=== PATIENT | female | born 1980 | race Caucasian/White ===

== ENCOUNTER 2023-10-02 17:36 | Emergency (ER) | payer OTHER, SELFPAY ==
[2023-10-02 17:41] VITALS: BP 115/83
[2023-10-02] MEDS: TORADOL 60 MG IM (18:46)
--- NOTE | 2023-10-02 19:20 | ED.GENMED ---
History of Present Illness
General
Chief Complaint: Fall
Source: patient and spouse
Exam Limitations: none
Time Seen by Provider: 10/02/23 18:18
Travel History
Have you had any contact with someone who has COVID-19?: No
Do you have any symptoms of coronavirus? Fever > 100 degrees, chills, cough, shortness of breath, sore throat, loss of taste or smell, muscle aches, or headache?: No
History of Present Illness
History of Present Illness:
42-year-old female presents with pain in the right chest wall. Patient states that she was riding a horse when it rubbed her against the [place] fence and then bucked and threw her off. Her right chest wall hit the top rail of the fence. She
states that hurts to move or breathe and hurts just under her right breast. No shortness of breath. No abdominal pain. No vomiting. No head injury. No neck pain
Past History
Past History
ED Past Medical History: Other (Elevated heart rate)
ED Past Surgical History: Gynecological and Orthopedic
Social History
Tobacco: Non-smoker
Alcohol: Occasional
Drug: None
Personal:
Living: with family
Employment: Employed
Phy Exam
Physical Exam
Physical Exam:
CONSTITUTIONAL Patient alert and oriented to person, place and time. Well-appearing. Vital signs reviewed.
HEAD atraumatic, normocephalic.
EYES eyelids normal to inspection, Pupils equally round and reactive to light, Extraocular muscles intact, Conjunctiva normal, Sclera normal.
NECK normal range of motion, Trachea midline, no jugular venous distention.
RESPIRATORY CHEST No respiratory distress noted, Chest expansion equal, Bilateral breath sounds clear. Moderate right chest wall tenderness around the level of ribs 4-5 and intercostal spaces
CARDIOVASCULAR regular rate and rhythm, Heart sounds normal.
ABDOMEN abdomen nontender, Bowel sounds normal. No distention.
BACK normal inspection, no obvious deformities
UPPER EXTREMITY range of motion normal, Motor strength normal, no cyanosis, no edema. Area of ecchymosis noted on the inside of the right upper arm
LOWER EXTREMITY range of motion normal, Motor strength normal, no cyanosis, no edema.
NEURO Speech normal, No focal motor deficits, John coma scale 15, Memory normal, Cranial Nerves intact to screening exam.
SKIN skin warm, dry, and normal in color.
PSYCHIATRIC patient oriented to person place and time, Normal affect.
Course
Orders/Labs/Results
Orders:
Orders
10/02/23 17:44
Chest [CR Chest - 2 Views ] Urgent
Comment:
Reason For Exam: fall on fence
10/02/23 18:30
Ketorolac [Toradol] 60 mg IM NOW STA
Vital Signs
Initial and Last Documented VS:
Initial Vital Signs
Temp Pulse Resp BP Pulse Ox
98.3 F 90 16 115/83 97
10/02/23 17:41 10/02/23 17:41 10/02/23 17:41 10/02/23 17:41 10/02/23 17:41
Last Documented Vital Signs
Temp Pulse Resp BP Pulse Ox
98.3 F 90 16 115/83 97
10/02/23 17:41 10/02/23 17:41 10/02/23 17:41 10/02/23 17:41 10/02/23 17:41
MDM/Problems Addressed
MDM/Problems Addressed:
Chest wall injury
*Radiology
Radiology exam reviewed: all reviewed NAD by ED Provider
*Pulse Oximetry
Patient hypoxic: no
*Critical Care Note
Total Time (30-74mins, 75-104mins- exclusive of procedures): Not Applicable
Data Reviewed
Source: patient and significant other
Further Testing Considered But Not Given:
Consider chest CT but chest x-ray negative and lungs clear and equal breath sounds bilaterally
Patient Management
Escalation/DeEscalation of care consider admission/obs:
Status Farheen, pain control, outpatient follow-up
ED Attending Note
-
Portions of this chart may have been created with voice recognition software.� Occasional wrong word or��sound alike� substitutions may have occurred due to the inherent limitations of voice recognition software.
Discharge Plan
Departure
Patient Disposition: Home (Routine Discharge)
Date of Disposition: 10/02/23
Time of Disposition: 19:21
Patient with high blood pressure during this ER visit?: No
Discharge Problem:
Chest wall injury
Instructions: Blunt Chest Trauma (DC)
Prescriptions:
New
hydrocodone-acetaminophen 5-325 mg tablet
1 tab PO Q4H PRN (Reason: pain) Qty: 12 0RF
Referrals:
Mary Zarco MD [Family Provider] -
Activity Restrictions/Additional Instructions:
Please use incentive spirometer 10 times per hour while awake. Return for shortness of breath, worsening pain, abdominal pain or any other concerns.
Interventions
Interventions:
*Risk Screen - Suicide Last Done: 10/02/23 19:38
*General Assessment Last Done: 10/02/23 17:41
*Neglect/Abuse Screening Last Done: 10/02/23 19:38
ED- Fall Risk Assessment Last Done: 10/02/23 19:38
*ED COVID-19 Vaccine History Last Done: 10/02/23 19:38
*Nursing Disposition Last Done: 10/02/23 19:38
ED-Musculoskeletal Assessment Last Done: 10/02/23 18:55
ED- Neurological Assessment Last Done: 10/02/23 18:55
ED-Skin Assessment Last Done: 10/02/23 18:55
Discharge Date and Time
Discharge Date/Time: 10/02/23 19:40
Print Language: NEPALI
== END 2023-10-02 19:40 | disposition home or self-care (01) ==
LOC: EMR 17:36
PROVIDERS: EMERGENCY PHYSICIAN Emergency Medicine; FAMILY PHYSICIAN Family Medicine
DX: S29.9XXA Unspecified injury of thorax, initial encounter (principal); V80.010A Animal-rider injured by fall from or being thrown from horse in noncollision accident, initial encounter; Y93.52 Activity, horseback riding
CPT/HCPCS: 99284; 96372; 71046

== ENCOUNTER 2023-10-15 10:55 | Emergency (ER) | payer OTHER, SELFPAY ==
[2023-10-15 11:00] VITALS: BP 126/85
[2023-10-15 12:22] VITALS: BMI 31.0
--- NOTE | 2023-10-15 12:24 | ED.GENMED ---
History of Present Illness
General
Chief Complaint: Breathing Problem
Source: patient
Exam Limitations: none
Time Seen by Provider: 10/15/23 11:46
Nursing documentation reviewed up to this point in time: agreed with
Travel History
Have you had any contact with someone who has COVID-19?: No
Do you have any symptoms of coronavirus? Fever > 100 degrees, chills, cough, shortness of breath, sore throat, loss of taste or smell, muscle aches, or headache?: No
History of Present Illness
History of Present Illness:
pt s a 42 y/o F with h/o PACs on diltiazem
here with right sided rib pain
was thrown off her horse 10/01 and pinned against something on right ribs
came in and had CXR no PTX, effusion
suspected to have rib fx
vicodin and I.S.
was doing better until 4 days ago when she opened a window and suddenly felt severe pain and now with any movement, br eathing, palpation it is very painful
took motrin this am
she thinks she can feel crepitus with palpatin of her right lwer ribs under her breast
Past History
Past History
ED Past Medical History: Other (Elevated heart rate)
ED Past Surgical History: Gynecological and Orthopedic
Social History
Tobacco: Non-smoker
Alcohol: Occasional
Drug: None
Personal:
Living: with family
Employment: Employed
Review of Systems
Review of Systems
Allergies reviewed?: Yes
All Other Systems: Not applicable
Phy Exam
Physical Exam
Physical Exam:
GENERAL: Alert , uncomfortable
EYE: pupils equal and reactive
NECK: Supple
ENT: o/p clr, mmm.
CARDIAC: Regular rate and rhythm .
LUNGS: diminished, splinting, alfredo dto appreciate sounds due to not taking deep breaths
no tachypnea
chest wall: right llower anterior and lateral rb tendrness
ABDOMEN: Soft, without focal tenderness, no r/g, no cvat, normal bowel sounds
NEUROLOGICAL: Alert and oriented, no focal neuro deficits
SKIN: Warm and dry, skin intact.
MUSCULOSKELETAL: No edema, well perfused. neg alen's sign
PSYCH: Normal and appropriate interaction.
Course
Orders/Labs/Results
Orders:
Orders
10/15/23 12:12
Electrocardiogram (*1) Urgent
Reason for Study: Chest Pain
CT Chest W/o Iv Contrast Urgent
Comment: cxr neg initially; now severe pain with breathing
Reason For Exam: rght rib pain, fell off horse 2 weeks ago
EKG- Treatment ONCE
10/15/23 12:17
HYDROmorphone [Dilaudid] 0.5 mg IV NOW STA
Test Result ONCE
10/15/23 12:18
Ondansetron Injectable [Zofran] 4 mg IV NOW STA
10/15/23 12:31
Complete Blood Count/With Diff Urgent
Comprehensive Metabolic Panel Urgent
HCG, Serum Qualitative Screen Urgent
10/15/23 14:38
Ketorolac [Toradol] 30 mg IV NOW STA
Abnormal Lab Results
10/15/23
12:31
Hct 36.2 L %
(37.0-47.0)
10/15/23 12:31
10/15/23 12:31
Vital Signs
Initial and Last Documented VS:
Initial Vital Signs
Temp Pulse Resp BP Pulse Ox
98 F 91 16 126/85 98
10/15/23 11:00 10/15/23 11:00 10/15/23 11:00 10/15/23 11:00 10/15/23 11:00
Last Documented Vital Signs
Temp Pulse Resp BP Pulse Ox
98 F 87 16 109/86 97
10/15/23 11:00 10/15/23 15:00 10/15/23 15:00 10/15/23 15:00 10/15/23 15:00
MDM/Problems Addressed
Differential Diagnosis Includes:
rib fx, ptx
MDM/Problems Addressed:
42 y/o F thrown off a horse 2 weeks ago
cxr did not show obvious rib fx
d/c home with pain meds, I.S.
had felt better an hadn't needed vicodin in a while and then got worse pain after lifting a window and has pain thta is much worse, with deep breathing and movement
No hypoxia or dyspnea. On exam she has normal vital signs, there is no skin bruising or wounds, she has some splinting limiting her air movement throughout but no adventitious sounds, she was tender in the right mid to lower ribs in the
midclavicular line to the mid axillary line
Her CT of her chest shows acute right fifth and sixth rib fractures without a pneumothorax. Her pain is improved after meds. Offered her another refill for pain medication, continue Tylenol and Motrin during the day,, pain pills at night as
needed. Return precautions
Patient informed regarding her pulmonary nodules, she is lower to intermediate risk because she used to smoke follow-up 6 months
*Critical Care Note
Total Time (30-74mins, 75-104mins- exclusive of procedures): Not Applicable
ED Attending Note
-
Portions of this chart may have been created with voice recognition software.� Occasional wrong word or��sound alike� substitutions may have occurred due to the inherent limitations of voice recognition software.
Discharge Plan
Departure
Patient Disposition: Home (Routine Discharge)
Date of Disposition: 10/15/23
Time of Disposition: 14:39
Patient with high blood pressure during this ER visit?: No
Condition: Fair
Covid-19: Not Applicable
Discharge Problem:
Rib fractures
Instructions: Rib Fracture or Bruised Rib ED
Prescriptions:
New
hydrocodone-acetaminophen 5-325 mg tablet
1 tab PO Q8H PRN (Reason: Pain) Qty: 12 0RF
No Action
hydrocodone-acetaminophen 5-325 mg tablet
1 tab PO Q4H PRN (Reason: pain) Qty: 12 0RF
Referrals:
Mary Zarco MD [Family Provider] - Follow up in 2-3 days
Stand Alone Forms: Return to Work
Activity Restrictions/Additional Instructions:
You have 2 rib fractures your right fifth and sixth ribs without any signs of pneumothorax. Take Motrin 3 times a day for pain. Continue to use your incentive spirometer. You can use the stronger pain medication as directed for severe pain.
Follow-up with your doctor
Return for any worsening symptoms.
You do have a few very small pulmonary nodules on your CAT scan. You are not high risk so this is likely something that we will not need follow-up, you can consider discussing with your family doctor and they might want to repeat your imaging in
the next 6 to 12 months.
Interventions
Interventions:
*Risk Screen - Suicide Last Done: 10/15/23 11:00
*General Assessment Last Done: 10/15/23 11:00
*Neglect/Abuse Screening Last Done: 10/15/23 11:00
ED- Fall Risk Assessment Last Done: 10/15/23 12:23
*ED COVID-19 Vaccine History Last Done: 10/15/23 12:23
*Nursing Disposition Last Done: 10/15/23 15:12
ED- Cardiac Assessment Last Done: 10/15/23 12:44
ED- Pulmonary Assessment Last Done: 10/15/23 12:44
Discharge Date and Time
Discharge Date/Time: 10/15/23 15:17
Print Language: SOMALI
[2023-10-15] MEDS: DILAUDID 0.5 MG IV (12:36)
[2023-10-15] MEDS: ZOFRAN 4 MG IV (12:38)
[2023-10-15 12:44] VITALS: BP 114/83
[2023-10-15 12:47] LABS: % Basophils 0.6 % (0-2); % Eosinophils 4.8 % (0-6); % Immature Granulocytes 0.3 % (0-0.5); % Monocytes 5.7 % (1.7-9.3); % Neutrophils 46.6 % (42.2-75.2); Absolute Eosinophils 0.3 10^3/uL (0-0.7); Absolute Lymphocytes 2.6 10^3/uL (1.2-3.4); Absolute Monocytes 0.4 10^3/uL (0.1-0.6); Absolute Neutrophils 2.9 10^3/uL (1.4-6.5); Hematocrit 36.2 % (37.0-47.0); Hemoglobin 12.6 g/dL (12.0-16.0); Mean Corp Hgb Conc. 34.8 g/dL (33.0-37.0); Mean Corpuscular Hgb 29.2 pg (27.0-31.0); Mean Corpuscular Volume 83.8 fL (81.0-99.0); Mean Platelet Volume 9.7 fL (7.4-10.4); Nucleated Red Blood Cells % 0 %; Platelet Count 313 10^3/uL (130-400); Red Blood Cell Count 4.32 10^6/uL (4.20-5.40); Red Cell Dist. Width 12.5 % (11.5-14.5); White Blood Cell Count 6.3 10^3/uL (4.8-10.8)
[2023-10-15 12:51] LABS: HCG, Serum Qualitative Screen Negative
[2023-10-15 13:00] VITALS: BP 128/82
[2023-10-15 13:03] LABS: ALT (SGPT) < 10 U/L (0-35); AST (SGOT) 17 U/L (14-36); Albumin 4.2 g/dl (3.5-5.0); Alkaline Phosphatase 56 U/L (38-126); Blood Urea Nitrogen 10 mg/dl (7-17); Calcium 9.6 mg/dl (8.4-10.2); Carbon Dioxide 27 mmol/L (22-30); Chloride 102 mmol/L (98-107); Estimated Creatinine Clearance 88 ml/min; Glucose 88 mg/dl (70-99); Potassium 3.9 mmol/L (3.5-5.1); Sodium 137 mmol/L (135-145); Total Bilirubin 0.6 mg/dl (0.2-1.3); Total Protein 6.7 g/dl (6.3-8.2); eGFR > 60.00
--- NOTE | 2023-10-15 13:40 | EDRN ---
Andreas CHILDERS in room w/ pt and his parents at this time.
[2023-10-15 14:05] VITALS: BP 134/88
[2023-10-15 15:00] VITALS: BP 109/86
[2023-10-15] MEDS: TORADOL 30 MG IV (15:02)
== END 2023-10-15 15:17 | disposition home or self-care (01) ==
LOC: EMR 10:55
PROVIDERS: Physician Assistant; EMERGENCY PHYSICIAN Emergency Medicine; FAMILY PHYSICIAN Family Medicine
DX: S22.41XA Multiple fractures of ribs, right side, initial encounter for closed fracture (principal); V80.010A Animal-rider injured by fall from or being thrown from horse in noncollision accident, initial encounter; Y93.52 Activity, horseback riding; R91.8 Other nonspecific abnormal finding of lung field
CPT/HCPCS: 99285; 96374; 96375 ×2; 71250; 80053; 84703; 85025; 93005

== ENCOUNTER → 2024-01-25 13:02 | Outpatient (REF) | payer OTHER, SELFPAY | LOC: RCS 13:02 | PROVIDERS: ATTENDING PHYSICIAN Internal Medicine Cardiovascular Disease; FAMILY PHYSICIAN Family Medicine | DX: R00.2 Palpitations (principal); R07.89 Other chest pain | CPT/HCPCS: 93225; 93226 ==

== ENCOUNTER 2024-02-09 00:19 | Emergency (ER) | payer OTHER, SELFPAY ==
[2024-02-09 00:23] VITALS: BP 105/80
--- NOTE | 2024-02-09 00:28 | ED.GENMED ---
History of Present Illness
General
Chief Complaint: Chest Pain
Source: patient
Exam Limitations: none
Time Seen by Provider: 02/09/24 00:21
History of Present Illness
History of Present Illness:
See MDM
Past History
Past History
ED Past Medical History: Other (Elevated heart rate)
ED Past Surgical History: Gynecological and Orthopedic
Social History
Tobacco: Non-smoker
Alcohol: Occasional
Drug: None
Personal:
Living: with family
Employment: Employed
Phy Exam
Physical Exam
Physical Exam:
See MDM
Scores
Heart Score for Chest Pain Patients
STEMI patient?: No
History: Slightly or Non-Suspicious
ECG: Normal
Age: </= 45 years
Risk Factors: No Risk Factors
Troponin: </= Normal Limit
Heart Score for Chest Pain Patients: 0
Heart Score Risk: 2.5% MACE over next 6 weeks
Course
Orders/Labs/Results
Orders:
Orders
02/09/24 00:23
Electrocardiogram (*1) Urgent
Reason for Study: Chest Pain
Cardiac Monitoring- Treatment ONCE
EKG- Treatment ONCE
IV Insert/Care/Rem.- Treatment PRN
Test Result ONCE
O2 Therapy [RESP] Urgent
Titrate/Wean O2 to maintain O2 sat greater than (%): 90
Special Instructions: Maintain sats >/=90%
Pulse Ox/spot Check [RESP] Urgent
Quantity: 1
Special Instructions: ON ROOM AIR
02/09/24 00:26
Ketorolac [Toradol] 30 mg IV NOW STA
CR Chest - 2 Views Urgent
Comment:
Reason For Exam: chest pain
02/09/24 00:28
Complete Blood Count/With Diff Urgent
Comprehensive Metabolic Panel Urgent
HCG, Serum Qualitative Screen Urgent
Comment: Notify provider if positive test present
Troponin I Urgent
02/09/24 02:32
Troponin I Urgent
Abnormal Lab Results
02/09/24
00:28
RBC 4.05 L 10^6/uL
(4.20-5.40)
Hct 33.7 L %
(37.0-47.0)
Absolute Lymphs (auto) 5.4 H 10^3/uL
(1.2-3.4)
Neutrophils % 34.1 L %
(42.2-75.2)
Lymphocytes % 57.5 H %
(20.5-51.1)
BUN 20 H mg/dl
(7-17)
Glucose 109 H mg/dl
(70-99)
AST 194 H U/L
(14-36)
ALT 83 H U/L
(0-35)
02/09/24 00:28
02/09/24 00:28
Vital Signs
Initial and Last Documented VS:
Initial Vital Signs
Temp Pulse Resp BP Pulse Ox
98.1 F 88 21 105/80 100
02/09/24 00:23 02/09/24 00:23 02/09/24 00:23 02/09/24 00:23 02/09/24 00:23
Last Documented Vital Signs
Temp Pulse Resp BP Pulse Ox
98.1 F 89 20 103/70 98
02/09/24 00:23 02/09/24 03:31 02/09/24 03:31 02/09/24 03:31 02/09/24 03:43
MDM/Problems Addressed
Differential Diagnosis Includes:
HPI and MDM Narrative:
43-year-old female presenting with central chest pain. Patient states it woke her up from sleep. She was given aspirin and nitroglycerin by EMS. Patient states the pain was relieved somewhat but it has returned. She had an issue like this 3
weeks ago where she was seen at an outside hospital. She states they wanted to admit her to do a catheterization but patient wanted to come home. She has since followed up with [facility] and has a stress test and echo scheduled for
tomorrow.
EKG is nonischemic. Will obtain 2 troponin rule out
That the pain occurred in bed, I question reflux but pt states this does not feel like reflux
Physical exam
General: Well appearing and non-toxic
HEENT: protecting airway
Neck: appears supple
CV: No evidence of cyanosis. Regular rate and rhythm
Resp: No accessory muscle use. Lungs clear
Abd: Non-distended and nontender
Extremities: No deformities. No leg edema
Neuro: alert
Psych: Normal affect
Skin: Intact
Problems Addressed including Acute and Chronic Conditions affecting care:
1. Chest pain
Acuity: acute
Prognosis: stable
Details: Given her history, will obtain rule out. She already has stress and echo scheduled for tomorrow
Differential Diagnosis (but not limited to): Noncardiac chest pain, pleurisy
Testing considered: D-dimer but she is neither tachycardic nor hypoxic
Drug therapy (if applicable): OTC meds, please see d/c instruction regarding Rx drugs
Amount and/or Complexity of Data Reviewed
Clinical info obtained from: Patient
External data reviewed: N/A
Labs I independently reviewed (but not limited to): trop neg x 2
Radiology: X-ray independently reviewed: Chest x-ray clear
Pulse Ox: not hypoxic
EKG independently reviewed: Sinus rhythm, normal axis, no STEMI
Block Inspector: sinus rhythm
Critical Care: N/A
Risk of Complication:
Social Determinants of health: Good social support
Discussed with other providers: N/A
Escalation of Care includes Admit/Obs: After being observed in the Emergency Department, pt stable for discharge.
Occasional wrong word or 'sound a like' substitutions may have occurred due to the inherent limitations of voice recognition software. Read the chart carefully and recognize, using context, where substitutions have occurred.
*Critical Care Note
Total Time (30-74mins, 75-104mins- exclusive of procedures): Not Applicable
ED Attending Note
-
Portions of this chart may have been created with voice recognition software.� Occasional wrong word or��sound alike� substitutions may have occurred due to the inherent limitations of voice recognition software.
Discharge Plan
Departure
Patient Disposition: Home (Routine Discharge)
Date of Disposition: 02/09/24
Time of Disposition: 03:28
Patient with high blood pressure during this ER visit?: No
Discharge Problem:
Chest pain
Prescriptions:
No Action
hydrocodone-acetaminophen 5-325 mg tablet
1 tab PO Q4H PRN (Reason: pain) Qty: 12 0RF
hydrocodone-acetaminophen 5-325 mg tablet
1 tab PO Q8H PRN (Reason: Pain) Qty: 12 0RF
Activity Restrictions/Additional Instructions:
It is not certain what is causing your chest pain. Please follow-up with your scheduled appointment later today for the echo and stress test. Please return for worsening symptoms.
Interventions
Interventions:
*Risk Screen - Suicide Last Done: 02/09/24 00:39
*General Assessment Last Done: 02/09/24 00:39
*Neglect/Abuse Screening Last Done: 02/09/24 00:39
ED- Fall Risk Assessment Last Done: 02/09/24 00:39
*ED COVID-19 Vaccine History Last Done: 02/09/24 00:39
*Nursing Disposition Last Done: 02/09/24 03:43
ED- Cardiac Assessment Last Done: 02/09/24 03:38
Discharge Date and Time
Discharge Date/Time: 02/09/24 03:46
Print Language: CHINESE
[2024-02-09] MEDS: TORADOL 30 MG IV (00:31)
[2024-02-09 00:35] VITALS: BMI 25.9
[2024-02-09 00:41] LABS: Hematocrit 33.7 % (37.0-47.0); Mean Corp Hgb Conc. 35.6 g/dL (33.0-37.0); Mean Corpuscular Hgb 29.6 pg (27.0-31.0); Mean Corpuscular Volume 83.2 fL (81.0-99.0); Mean Platelet Volume 9.9 fL (7.4-10.4); Platelet Count 290 10^3/uL (130-400); Red Blood Cell Count 4.05 10^6/uL (4.20-5.40); Red Cell Dist. Width 12.3 % (11.5-14.5); White Blood Cell Count 9.4 10^3/uL (4.8-10.8)
[2024-02-09 00:50] LABS: HCG, Serum Qualitative Screen Negative
[2024-02-09 00:54] LABS: ALT (SGPT) 83 U/L (0-35); AST (SGOT) 194 U/L (14-36); Albumin 4.1 g/dl (3.5-5.0); Alkaline Phosphatase 46 U/L (38-126); Blood Urea Nitrogen 20 mg/dl (7-17); Carbon Dioxide 27 mmol/L (22-30); Chloride 100 mmol/L (98-107); Estimated Creatinine Clearance 80 ml/min; Glucose 109 mg/dl (70-99); Potassium 3.8 mmol/L (3.5-5.1); Sodium 137 mmol/L (135-145); Total Bilirubin 0.3 mg/dl (0.2-1.3); Total Protein 6.3 g/dl (6.3-8.2); eGFR > 60.00
[2024-02-09 01:05] LABS: Troponin I < 0.012 ng/ml
[2024-02-09 01:09] LABS: % Basophils 0.3 % (0-2); % Immature Granulocytes 0.2 % (0-0.5); % Lymphocytes 57.5 % (20.5-51.1); % Monocytes 4.9 % (1.7-9.3); % Neutrophils 34.1 % (42.2-75.2); Absolute Eosinophils 0.3 10^3/uL (0-0.7); Absolute Lymphocytes 5.4 10^3/uL (1.2-3.4); Absolute Monocytes 0.5 10^3/uL (0.1-0.6); Absolute Neutrophils 3.2 10^3/uL (1.4-6.5); Nucleated Red Blood Cells % 0 %
[2024-02-09 02:28] VITALS: BP 90/53
[2024-02-09 03:05] LABS: Troponin I < 0.012 ng/ml
[2024-02-09 03:31] VITALS: BP 103/70
== END 2024-02-09 03:46 | disposition home or self-care (01) ==
LOC: EMR 00:19
PROVIDERS: EMERGENCY PHYSICIAN Student in an Organized Health Care Education/Training Program; FAMILY PHYSICIAN Family Medicine
DX: R07.9 Chest pain, unspecified (principal)
CPT/HCPCS: 99285; 96374; 71046; 80053; 84484; 84703; 85025; 93005

== ENCOUNTER → 2024-02-09 09:15 | Outpatient (REF) | payer OTHER, SELFPAY | LOC: RCS 09:15 | PROVIDERS: ATTENDING PHYSICIAN Nurse Practitioner Gerontology; FAMILY PHYSICIAN Physician Assistant | DX: R07.9 Chest pain, unspecified (principal) | CPT/HCPCS: 93306 ==

== ENCOUNTER → 2024-02-17 08:29 | Outpatient (REF) | payer OTHER, SELFPAY | LOC: DHCBC/DCA 08:29 | PROVIDERS: ATTENDING PHYSICIAN Nurse Practitioner Gerontology; FAMILY PHYSICIAN Physician Assistant | DX: R07.9 Chest pain, unspecified (principal) | CPT/HCPCS: 78452; 93017; A9500 ==

== ENCOUNTER → 2024-04-20 09:03 | Outpatient (REF) | payer OTHER, SELFPAY | LOC: WDC 09:03 | PROVIDERS: ATTENDING PHYSICIAN Physician Assistant | DX: N64.4 Mastodynia (principal); N63.10 Unspecified lump in the right breast, unspecified quadrant | CPT/HCPCS: 76642; 77062; 77066 ==

== ENCOUNTER 2024-05-23 14:21 | Emergency (ER) | payer OTHER, SELFPAY ==
[2024-05-23 14:24] VITALS: BP 110/71
--- NOTE | 2024-05-23 14:27 | ED.GENMED ---
ED Provider Triage
<Nancy Baez PA-C - Last Filed: 05/23/24 20:33>
-
Patient seen by provider in Triage?: Seen in Triage
Attestation: A medical screening examination has been initiated by a qualified medical provider. Based on the assessment performed at this time, it has been determined that an emergent medical condition may exist and the patient has been informed
that further medical evaluation and possible additional diagnostic testing may be needed.
HPI: 43yoF here with vaginal bleeding x 5 days. Passing heavy clots. Has gone through 10 pads today. Seen by PCP yesterday. Fingerstick hemoglobin 10.3 at that time. C/o generalized weakness and fatigue. No syncope or SOB.
GENERAL: Alert , in no apparent distress
EYE: No visual abnormalities.
NECK: Trachea midline
ENT: No visible abnormalities.
LUNGS: No acute respiratory distress
NEUROLOGICAL: Alert and oriented
SKIN: Skin intact. No visible changes.
MUSCULOSKELETAL: Moving extremities normally
PSYCH: Normal and appropriate interaction.
This is a medical evaluation conducted in person to initiate diagnostic evaluation and provide initial therapeutics. Please see further documentation by the treating clinician.
CBC, CMP, TSH, HCG, and pelvic ultrasound ordered.
History of Present Illness
<Nnacy Baez PA-C - Last Filed: 05/23/24 20:33>
General
Chief Complaint: Vaginal Bleeding
Time Seen by Provider: 05/23/24 16:49
<Meredith Benjamin PA-C - Last Filed: 05/23/24 18:53>
General
Source: patient
Exam Limitations: none
Nursing documentation reviewed up to this point in time: agreed with
History of Present Illness
History of Present Illness:
43-year-old female with past medical history of IBS presents emergency department today with concerns of heavy vaginal bleeding. Patient states that she is currently on her menstrual cycle and reports that this is day 5 or menstrual cycle and she
is still experiencing heavy bleeding. Patient states that she never had bleeding this heavy before. Patient states that she passed a large clot which was painful to pass. Patient denies dizziness or lightheadedness. Patient saw her primary care
provider yesterday who did blood work and noted that her hemoglobin was 10 and advise she report to the emergency department. Patient does not take any forms of control. Patient does not currently have an [employer]. Patient denies any chance
of . Patient denies any fevers or chills, any nausea or vomiting peer
Past History
<Nancy Baez PA-C - Last Filed: 05/23/24 20:33>
Past History
ED Past Medical History: Other (Elevated heart rate)
ED Past Surgical History: Gynecological and Orthopedic
Social History
Tobacco: Non-smoker
Alcohol: Occasional
Drug: None
Personal:
Living: with family
Employment: Employed
Review of Systems
<Meredith Benjamin PA-C - Last Filed: 05/23/24 18:53>
Review of Systems
All Other Systems: ROS reviewed and negative except as documented in HPI and ROS
Phy Exam
<Meredith Benjamin PA-C - Last Filed: 05/23/24 18:53>
Physical Exam
Physical Exam:
General: Patient is well appearing and in no acute distress; non-toxic
Skin: Warm and dry, no rashes or lesions
Head: Normocephalic, atraumatic
Eyes: Sclera non-icteric. EOMs intact. PERRLA.
Cardiac: Regular rate and rhythm, no murmurs
Peripheral Vascular: No lower extremity swelling or edema
Pulm: Normal respiratory effort
Abdomen: No abdominal tenderness
Genitourinary: Deferred
Neuro: CN II-XII intact, no focal neurologic deficits.
Psychiatric: Appropriate mood and affect.
Course
<Nancy Baez PA-C - Last Filed: 05/23/24 20:33>
Orders/Labs/Results
Orders:
Orders
05/23/24 14:28
Test Result ONCE
Pelvis & Transvaginal US [US Pelvis W Transvag Combined] Urgent
Comment:
Reason For Exam: Vaginal bleeding
05/23/24 14:36
Complete Blood Count/With Diff Urgent
Comprehensive Metabolic Panel Urgent
HCG, Serum Qualitative Screen Urgent
TSH Reflex To Free T4 Urgent
Abnormal Lab Results
05/23/24
14:36
RBC 4.16 L 10^6/uL
(4.20-5.40)
Hct 36.1 L %
(37.0-47.0)
BUN 19 H mg/dl
(7-17)
Alkaline Phosphatase 34 L U/L
(38-126)
05/23/24 14:36
05/23/24 14:36
Vital Signs
Initial and Last Documented VS:
Initial Vital Signs
Temp Pulse Resp BP Pulse Ox
97.9 F 91 16 110/71 98
05/23/24 14:24 05/23/24 14:24 05/23/24 14:24 05/23/24 14:24 05/23/24 14:24
Last Documented Vital Signs
Temp Pulse Resp BP Pulse Ox
97.9 F 76 18 99/63 100
05/23/24 14:24 05/23/24 19:18 05/23/24 19:18 05/23/24 19:18 05/23/24 19:18
<Meredith Benjamin PA-C - Last Filed: 05/23/24 18:53>
Orders/Labs/Results
Orders:
Orders
05/23/24 14:28
Test Result ONCE
Pelvis & Transvaginal US [US Pelvis W Transvag Combined] Urgent
Comment:
Reason For Exam: Vaginal bleeding
05/23/24 14:36
Complete Blood Count/With Diff Urgent
Comprehensive Metabolic Panel Urgent
HCG, Serum Qualitative Screen Urgent
TSH Reflex To Free T4 Urgent
Abnormal Lab Results
05/23/24
14:36
RBC 4.16 L 10^6/uL
(4.20-5.40)
Hct 36.1 L %
(37.0-47.0)
BUN 19 H mg/dl
(7-17)
Alkaline Phosphatase 34 L U/L
(38-126)
05/23/24 14:36
05/23/24 14:36
Vital Signs
Initial and Last Documented VS:
Initial Vital Signs
Temp Pulse Resp BP Pulse Ox
97.9 F 91 16 110/71 98
05/23/24 14:24 05/23/24 14:24 05/23/24 14:24 05/23/24 14:24 05/23/24 14:24
Last Documented Vital Signs
Temp Pulse Resp BP Pulse Ox
97.9 F 76 18 99/63 100
05/23/24 14:24 05/23/24 19:18 05/23/24 19:18 05/23/24 19:18 05/23/24 19:18
<Meredith Benjamin PA-C - Last Filed: 05/23/24 18:53>
MDM/Problems Addressed
Differential Diagnosis Includes:
See below
MDM/Problems Addressed:
HPI:
NUMBER AND COMPLEXITY OF PROBLEMS ADDRESSED AT THE ENCOUNTER
� Chronic conditions affecting care: IBS
� Acute Exacerbation and/or Progression of Chronic Illness:
� Differential Diagnosis includes: Uterine fibroid, menstruation, hemorrhagic cyst, ectopic
AMOUNT AND/OR COMPLEXITY OF DATA TO BE REVIEWED AND ANALYZED
� I performed an independent evaluation of and my interpretation is:
Laboratory Studies: Hemoglobin stable
Other:
� Review of other/old records: Reviewed previous ER physician documentation from 02/09/2024, patient seen for chest pain, patient discharge, no discharge summaries in [facility] to review
� Clinical information was obtained by an independent historian: N/A
� Prescriptions/Medications Considered but not given: N/A
� Further testing considered but not performed:
RISK OF COMPLICATIONS AND/OR MORBIDITY OR MORTALITY OF PATIENT MANAGEMENT
� Social determinants of health affecting care: None
� Discussion with other providers: ER attending
� Escalation of care including admission/observation vs risk of discharge considered:
43-year-old female presents emergency department today with concerns of a heavy period. Patient states that she has never had bleeding this heavy on her period. She denies dizziness or lightheadedness. Her hemoglobin is stable. Her vital signs
are stable. She is not , doubt ectopic at this time. Her ultrasound was normal, no evidence of fibroids. Patient will be given AVINASH this he does not help control bleeding, bleeding 1 tampon per hour. Patient stable for
discharge.
<Meredith Benjamin PA-C - Last Filed: 05/23/24 18:53>
*Critical Care Note
Total Time (30-74mins, 75-104mins- exclusive of procedures): Not Applicable
ED Attending Note
<Nancy Baez PA-C - Last Filed: 05/23/24 20:33>
-
Portions of this chart may have been created with voice recognition software.� Occasional wrong word or��sound alike� substitutions may have occurred due to the inherent limitations of voice recognition software.
Discharge Plan
Departure
Patient Disposition: Home (Routine Discharge)
Date of Disposition: 05/23/24
Time of Disposition: 18:37
Patient with high blood pressure during this ER visit?: No
Condition: Good
Discharge Problem:
Abnormal uterine bleeding
Instructions: Heavy Periods (DC)
Prescriptions:
New
norethindrone acetate 5 mg tablet
5 mg PO DAILY 5 Days Qty: 5 0RF
No Action
hydrocodone-acetaminophen 5-325 mg tablet
1 tab PO Q4H PRN (Reason: pain) Qty: 12 0RF
hydrocodone-acetaminophen 5-325 mg tablet
1 tab PO Q8H PRN (Reason: Pain) Qty: 12 0RF
Referrals:
Faviola Lieberman MD [Active] - Call in 1-3 days for appt
Annamaria Dominguez PA [Family Provider] -
Activity Restrictions/Additional Instructions:
Your hemoglobin today was 12.5
PLEASE RETURN TO EMERGENCY DEPARTMENT SHOULD YOU EXPERIENCE DIZZINESS, LIGHTHEADEDNESS, FEVERS OR CHILLS, ABDOMINAL PAIN, CHEST PAIN, SHORTNESS OF BREATH, OR ANY OTHER SIGNS OR SYMPTOMS WORRISOME TO YOU.
Interventions
Interventions:
*Risk Screen - Suicide Last Done: 05/23/24 14:27
*General Assessment Last Done: 05/23/24 19:18
*Neglect/Abuse Screening Last Done: 05/23/24 14:27
*Nursing Disposition Last Done: 05/23/24 19:20
ED-Female Genitourinary Assessment Last Done: 05/23/24 17:11
Discharge Date and Time
Discharge Date/Time: 05/23/24 19:20
Print Language: NEPALI
[2024-05-23 14:43] LABS: % Basophils 0.8 % (0-2); % Eosinophils 4.2 % (0-6); % Immature Granulocytes 0.3 % (0-0.5); % Lymphocytes 37.5 % (20.5-51.1); % Monocytes 5.1 % (1.7-9.3); % Neutrophils 52.1 % (42.2-75.2); Absolute Basophils 0.1 10^3/uL (0-0.2); Absolute Eosinophils 0.3 10^3/uL (0-0.7); Absolute Lymphocytes 2.5 10^3/uL (1.2-3.4); Absolute Monocytes 0.3 10^3/uL (0.1-0.6); Absolute Neutrophils 3.5 10^3/uL (1.4-6.5); Hematocrit 36.1 % (37.0-47.0); Hemoglobin 12.5 g/dL (12.0-16.0); Mean Corp Hgb Conc. 34.6 g/dL (33.0-37.0); Mean Corpuscular Volume 86.8 fL (81.0-99.0); Mean Platelet Volume 9.4 fL (7.4-10.4); Nucleated Red Blood Cells % 0 %; Platelet Count 349 10^3/uL (130-400); Red Blood Cell Count 4.16 10^6/uL (4.20-5.40); Red Cell Dist. Width 12.8 % (11.5-14.5); White Blood Cell Count 6.6 10^3/uL (4.8-10.8)
[2024-05-23 15:03] LABS: HCG, Serum Qualitative Screen Negative
[2024-05-23 15:16] LABS: ALT (SGPT) 17 U/L (0-35); AST (SGOT) 19 U/L (14-36); Albumin 4.5 g/dl (3.5-5.0); Alkaline Phosphatase 34 U/L (38-126); Blood Urea Nitrogen 19 mg/dl (7-17); Calcium 8.8 mg/dl (8.4-10.2); Carbon Dioxide 29 mmol/L (22-30); Chloride 102 mmol/L (98-107); Glucose 95 mg/dl (70-99); Potassium 3.9 mmol/L (3.5-5.1); Sodium 139 mmol/L (135-145); Total Bilirubin 0.4 mg/dl (0.2-1.3); Total Protein 6.9 g/dl (6.3-8.2); eGFR > 60.00
[2024-05-23 15:32] LABS: TSH Reflex To Free T4 0.52 uIU/ml (0.47-4.68)
[2024-05-23 19:18] VITALS: BP 99/63
== END 2024-05-23 19:20 | disposition home or self-care (01) ==
LOC: EMR 14:21
PROVIDERS: Physician Assistant; EMERGENCY PHYSICIAN Emergency Medicine; FAMILY PHYSICIAN Physician Assistant
DX: N93.9 Abnormal uterine and vaginal bleeding, unspecified (principal); K58.9 Irritable bowel syndrome, unspecified
CPT/HCPCS: 99284; 76830; 76856; 80053; 84443; 84703; 85025

== ENCOUNTER → 2024-10-18 07:43 | Outpatient (REF) | payer OTHER, SELFPAY | LOC: HWRAD 07:43 | PROVIDERS: ATTENDING PHYSICIAN Family Medicine | DX: R91.1 Solitary pulmonary nodule (principal) | CPT/HCPCS: 71250 ==

== ENCOUNTER → 2025-04-17 20:13 | Outpatient (REF) | payer OTHER, SELFPAY | LOC: MRI 20:13 | PROVIDERS: ATTENDING PHYSICIAN Otolaryngology; FAMILY PHYSICIAN Physician Assistant | DX: R51.9 Headache, unspecified (principal) | CPT/HCPCS: 70553; A9575 ==